=== PATIENT | female | born 1985 | race Caucasian/White ===

== ENCOUNTER 2017-09-24 10:15 | Emergency (ER) | payer BC, MEDICAID ==
[2017-09-24 10:31] VITALS: RESP 16; TEMP 99
--- NOTE | 2017-09-24 11:05 | C.PDOC ---
History Of Present Illness 32yo female, comes to ER for evaluation of a mild throat pain x 3 days. Patient states she ate fish 4 days ago and since the past 3 days, she feels a mild sharp pain in her throat, which has been constant. She denies any vomiting, difficulty tolerating fluid or solid PO intake. She also denies any fever, chest pain or shortness of breath. She has no other complaints. Time Seen by Provider: 09/24/17 10:31 Chief Complaint (Nursing): ENT Problem History Per: Patient History/Exam Limitations: None Onset/Duration Of Symptoms: Days (3) Current Symptoms Are (Timing): Still Present Past Medical History Reviewed: Historical Data, Nursing Documentation, Vital Signs Vital Signs: Last Vital Signs Temp 99 F 09/24/17 10:28 Pulse 71 09/24/17 11:17 Resp 16 09/24/17 11:17 BP 110/68 09/24/17 11:17 Pulse Ox 98 09/24/17 11:17 - Medical History PMH: No Chronic Diseases Family History: States: No Known Family Hx - Social History Hx Tobacco Use: No Hx Alcohol Use: Yes Hx Substance Use: No Review Of Systems Constitutional: Negative for: Fever, Chills ENT: Positive for: Throat Pain Cardiovascular: Negative for: Chest Pain Respiratory: Negative for: Shortness of Breath Gastrointestinal: Negative for: Vomiting Physical Exam - Physical Exam Appears: Non-toxic, No Acute Distress Skin: Warm, Dry Head: Normacephalic Eye(s): bilateral: Normal Inspection Throat: Normal, No Erythema, No Exudate, No Drooling, No Mass Neck: Normal ROM, Supple Chest: Symmetrical Cardiovascular: Rhythm Regular Respiratory: Normal Breath Sounds, Other (speaking full sentences) Gastrointestinal/Abdominal: Normal Exam, Soft, No Tenderness Neurological/Psych: Oriented x3 ED Course And Treatment O2 Sat by Pulse Oximetry: 99 (RA) Pulse Ox Interpretation: Normal - Other Rad XR Neck soft tissues X-Ray: Interpreted by Me, Viewed By Me Interpretation: No foreign body noted Progress Note: XR soft tissues of neck ordered. UPreg POC done and resulted positive. XR reviewed, no foreign body noted. Discussed with patient the option for CT of soft tissues in neck but she states she is comfortable with following up with Dr. Jones (ENT) at his office. Patient passed PO challenge in ER. Given prescription for viscous lidocain to grargle with if she has throat pain. Disposition Counseled Patient/Family Regarding: Diagnosis, Need For Followup, Rx Given - Disposition Referrals: Atif Jones MD [Staff Provider] - Disposition: HOME/ ROUTINE Disposition Time: 11:10 Condition: STABLE Additional Instructions: FOLLOW UP WITH ENT IN 1-2 DAYS USE MEDICATION NEEDED RETURN TO ER IF SYMPTOMS WORSEN Prescriptions: Lidocaine 2% Viscous 15 ml MM TID PRN #1 bottle PRN Reason: THROAT PAIN Multivit/Folic Acid/I [ Plus] 1 tab PO DAILY #30 tab Forms: readfy (Sinhala) - Clinical Impression Clinical Impression: Foreign body sensation in throat, - Scribe Statement The provider has reviewed the documentation as recorded by the Marybel Pinto Provider Attestation: All medical record entries made by the Marybel were at my direction and personally dictated by me. I have reviewed the chart and agree that the record accurately reflects my personal performance of the history, physical exam, medical decision making, and the department course for this patient. I have also personally directed, reviewed, and agree with the discharge instructions and disposition.
[2017-09-24 11:18] VITALS: BP 110/68; PULSE 71
--- NOTE | 2017-09-24 11:36 | RAD ---
Date of service: 09/24/2017 PROCEDURE: Radiographs of Neck HISTORY: POSSIBLE FISH BONE STUCK COMPARISON: None available. TECHNIQUE: Frontal and lateral radiographs of the neck. FINDINGS: No fracture visualized. Soft tissues unremarkable. IMPRESSION: Unremarkable radiographs of the neck.
[2017-09-24 12:41] VITALS: O2SAT 99
== END 2017-09-24 11:17 | disposition home or self-care (01) ==
LOC: C.ER 10:15
DX: R09.89 Other specified symptoms and signs involving the circulatory and respiratory systems (principal); O26.899 Other specified pregnancy related conditions, unspecified trimester; Z3A.00 Weeks of gestation of pregnancy not specified